=== PATIENT | male | born 1970 | race Hispanic/Latino ===

== ENCOUNTER → 2020-12-30 10:42 | Outpatient (CLI) | payer OTHER, SELFPAY ==
--- NOTE | ~2020-12-30 | XR_ITS ---
EXAMINATION: XR foot RT min 3V DATE: 12/30/2020 11:16 INDICATION: Dorsal lateral right foot pain. TECHNIQUE: 4 views of right foot were obtained. COMPARISON: Right ankle radiographs 06/26/2010 FINDINGS: Bone alignment is normal. No fracture. There is mild osteoarthritis of first metatarsophala ngeal joint and some of the interphalangeal joints. There are enthesophytes at the posterior and plan tar aspects of calcaneal tuberosity. IMPRESSION: 1. Mild particular osteoarthritis. Reviewed, dictated and finalized at location A.
== END ==
PROVIDERS: PCP Family Medicine Adolescent Medicine; Visit Provider Family Medicine Adolescent Medicine
DX: M19.071 Primary osteoarthritis, right ankle and foot (principal)
CPT/HCPCS: 73630

== ENCOUNTER → 2021-06-29 10:02 | Outpatient (CLI) | payer OTHER, SELFPAY ==
--- NOTE | ~2021-06-29 | XR_ITS ---
EXAMINATION: XR knee LT 3V EXAM DATE: 06/29/2021 10:16 INDICATION: M25.562 - Pain in left knee. TECHNIQUE: Three projections of the left knee. There is no prior study for comparison. FINDINGS: No evidence osteochondral defect or joint body in the left knee joint. There is moderate to severe patellofemoral compartment, mild tibiofemoral primary osteoarthritis. No joint effusion. T here are no acute fractures or dislocations identified. There is no subcutaneous gas. The soft tiss ue is unremarkable. There are no radiopaque foreign bodies. IMPRESSION: Moderate to severe left patellofemoral compartment osteoarthritis. Reviewed, dictated and finalized at location G.
== END ==
PROVIDERS: PCP Family Medicine Adolescent Medicine; Visit Provider Physician Assistant
DX: M17.12 Unilateral primary osteoarthritis, left knee (principal)
CPT/HCPCS: 73562

== ENCOUNTER 2023-07-03 14:34 | Outpatient (CLI) | payer OTHER, SELFPAY ==
--- NOTE | ~2023-07-03 | CT_ITS ---
EXAMINATION: CT LE RT wo con DATE: 07/03/2023 15:00 INDICATION: Right knee primary osteoarthritis. Preoperative planning. TECHNIQUE: Computed tomography (CT) of the right lower limb was performed without intravenous contras t. Automated exposure control and iterative reconstruction technique were employed. The dose-length p roduct was 1806.21 mGy-cm. COMPARISON: Right knee radiographs 06/20/2023 FINDINGS: Right hip demonstrates normal bone alignment. There is mild right hip osteoarthritis. There are a few scattered benign bone islands. Right knee demonstrates lateral subluxation of patella. The re is severe osteoarthritis of the patellofemoral compartment and moderate osteoarthritis of the medi al and lateral compartments. There is a small knee joint effusion. IMPRESSION: 1. Severe right knee osteoarthritis. 2. Small right knee joint effusion. 3. Mild right hip osteoarthritis. Reviewed, dictated and finalized at location A.
== END 2023-07-03 14:35 | disposition home or self-care (01) ==
LOC: ANHIMG 14:36
PROVIDERS: PCP Family Medicine Adolescent Medicine; Visit Provider Orthopaedic Surgery
DX: M17.11 Unilateral primary osteoarthritis, right knee (principal); M16.11 Unilateral primary osteoarthritis, right hip; M25.451 Effusion, right hip
CPT/HCPCS: 73700

== ENCOUNTER 2023-08-21 10:16 | Outpatient (CLI) | payer OTHER, SELFPAY ==
[2023-08-21 10:41] LABS: Hematocrit 44.5 % (42.0-52.0); Hemoglobin 14.8 g/dL (14.0-18.0)
--- NOTE | 2023-08-21 10:41 | ECG_ITS ---
SEE SCANNED COPY FOR CONFIRMED REPORT MTDD
[2023-08-21 10:51] LABS: Albumin Level 4.5 g/dL (3.5-5.1); Estimated Glomerular Filt Rate > 60; Glucose 108 mg/dL (65-110)
[2023-08-21 10:54] LABS: Urine Cotinine NEGATIVE
== END 2023-08-21 10:17 | disposition home or self-care (01) ==
PROVIDERS: PCP Family Medicine Adolescent Medicine; Visit Provider Orthopaedic Surgery
DX: M17.0 Bilateral primary osteoarthritis of knee (principal); Z79.899 Other long term (current) drug therapy
CPT/HCPCS: 80307; 82040; 82565; 82947; 85014; 85018; 93005